=== PATIENT | female | born 1955 | race Caucasian/White ===

== ENCOUNTER 2018-11-19 12:08 | Outpatient (CLI) | payer OTHER ==
--- NOTE | 2018-11-19 13:49 | RAD ---
LUMBAR SPINE TWO VIEWS: History: Low back pain. FINDINGS: There are five lumbar type vertebrae. Pedicles are intact. Prominent rightward convex curvature apex L2-3 level. Mild chronic appearing compression of the L3 and L2 superior endplates. AP alignment maintained. Prom inent osteophytosis throughout the vertebral bodies and facets. IMPRESSION: 1. Prominent degenerative changes of the lumbar spine including rightward convex scoliotic curvature. 2. Mild chronic appearing compression of the L2 and L3 superior endplates. POS: [facility]
--- NOTE | 2018-11-19 14:54 | RAD ---
RIGHT KNEE TWO VIEWS: HISTORY: Right knee pain. FINDINGS: Mild joint space narrowing, medial compartment, where osteophytosis is most pronounced. Postoperativ e changes, consistent with ACL reconstruction. Osteophytosis of the posterior patella. Mild fluid d istention of the suprapatella bursa. IMPRESSION: 1. Small amount of joint fluid, likely related to otherwise moderate osteoarthritic changes of the m edia compartment. 2. Status post anterior cruciate ligament reconstruction. POS: [facility]
== END 2018-11-19 12:09 | disposition home or self-care (01) ==
LOC: BICRAD 12:08
PROVIDERS: ATTEND Internal Medicine
DX: Z02.71 Encounter for disability determination (principal); M47.816 Spondylosis without myelopathy or radiculopathy, lumbar region
CPT/HCPCS: 72100

== ENCOUNTER 2019-12-26 14:05 | Outpatient (CLI) | payer BC ==
--- NOTE | 2019-12-26 15:48 | BD ---
Exam: DEXA Bone Density 12/26/19 HISTORY: Postmenopausal screening for osteoporosis. FINDINGS: Lumbar Spine: BMD (g/cm2) T-SCORE Z-SCORE L1 1.172 1.7 3.1 L2 1.502 4.3 5.9 L3 1.567 4.4 6.1 L4 1.427 3.3 5.1 L1-L4 1.420 3.4 5.0 Femoral Neck: 0.944 0.9 2.3 Total Femur: 1.078 1.1 2.2 Impression: Normal BMD. POS: [facility]
--- NOTE | 2020-01-06 15:48 | MMO ---
Bilateral MAMMO Bilat Screen [facility]. CLINICAL HISTORY: Patient is 64 years old and is seen for screening. The patient has the following family history of breast cancer: 2 great aunts. The patient has a history of bilateral Implants in 1996 and bilateral Explantation in 1996. VIEWS: The views performed were: bilateral craniocaudal with tomosynthesis and bilateral mediolateral oblique with tomosynthesis. FILMS COMPARED: The present examination has been compared to prior imaging studies performed at [facility] on 11/24/2011, 10/09/2013, 12/12/2014 and 12/01/2016. This study has been interpreted with the assistance of computer-aided detection. MAMMOGRAM FINDINGS: There are scattered fibroglandular densities. There are no suspicious masses, suspicious calcifications, or new areas of architectural distortion. IMPRESSION: THERE IS NO MAMMOGRAPHIC EVIDENCE OF MALIGNANCY. A ROUTINE FOLLOW-UP MAMMOGRAM IN 1 YEAR IS RECOMMENDED. THE RESULTS OF THIS EXAM WERE SENT TO THE PATIENT. ACR BI-RADS Category 1 - Negative MAMMOGRAPHY NOTE: 1. A negative mammogram report should not delay a biopsy if a dominant of clinically suspicious mass is present. 2. Approximately 10% to 15% of breast cancers are not detected by mammography. 3. Adenosis and dense breasts may obscure an underlying neoplasm. Reported by: MORAIMA SANTOS MD Electonically Signed: [id number]
== END 2019-12-26 14:06 | disposition home or self-care (01) ==
LOC: BICMAMMO 14:05
PROVIDERS: ATTEND Internal Medicine
DX: Z12.31 Encounter for screening mammogram for malignant neoplasm of breast (principal); Z13.820 Encounter for screening for osteoporosis; M81.0 Age-related osteoporosis without current pathological fracture; Z80.3 Family history of malignant neoplasm of breast; Z98.82 Breast implant status
CPT/HCPCS: 77063; 77067; 77080

== ENCOUNTER 2021-01-31 15:07 | Emergency (ER) | payer BC ==
[~2021-01-31 15:07] MED LIST: Iopamidol-370 76% 500 ML 1 ML ONE
[2021-01-31 16:28] LABS: #Basophils 0.1 thou/uL (0.0-0.2); #Eosinphils 0.2 thou/uL (0.0-0.7); #Lymphocytes 2.5 thou/uL (1.20-3.40); #Neutrophils 9.8 thou/uL (1.40-6.50); %Basophils 0.4 % (0.0-1.0); %Eosinophils 1.4 % (0.0-10.0); %Lymphocytes 18.6 % (21.0-51.0); %Monocytes 7.3 % (0.0-10.0); %Neutrophils 72.2 % (42.0-75.0); Hemoglobin 12.9 g/dL (12.0-16.0); Mean Corpuscular HGB CONC 33.1 g/dL (32.0-36.0); Mean Corpuscular Hemoglobin 32.1 pg (27.0-31.0); Mean Corpuscular Volume 97.1 fL (78.0-98.0); Mean Platelet Volume 7.7 fL (7.4-10.4); Platelet Count 257 thou/uL (130-400); RBC Distribution Width 11.9 % (11.5-14.5); Red Blood Cell (RBC) Count 4.02 mill/uL (4.20-5.40); White Blood Cell (WBC) Count 13.5 thou/uL (4.8-10.8)
[2021-01-31 16:32] LABS: Bacteria/HPF None Seen HPF (None Seen); Bilirubin Negative (Negative); Blood, Urine Trace (Negative); Clarity Clear (Clear); Glucose, Urine (Dipstick) Normal (Negative); Ketone, Urine Negative (Negative); Leukocyte Negative Leu/uL (Negative); Nitrite Negative (Negative); Protein, Urine (Dipstick) Negative (Neg-Trace); RBC/HPF 0-3 HPF (0-3); Specific Gravity, Urine 1.013 (1.002-1.036); Squamous Epithelial 0-3 HPF (0-3); Urobilinogen Normal mg/dL (Less than 2); WBC/HPF 0-3 HPF (0-3); pH, Urine 5.5 (5.0-9.0)
[2021-01-31] MEDS ORDERED: Ondansetron PF 4 MG/2 ML Vial ONE (16:44)
[2021-01-31] MEDS ORDERED: Morphine 4 MG/ML VIAL ONE (16:44)
[2021-01-31 17:38] LABS: ALT (SGPT) 8 U/L (8-55); AST (SGOT) 9 U/L (5-34); Albumin 4.1 g/dL (3.4-4.8); Alkaline Phosphatase 64 U/L (40-110); Anion Gap 13 mmol/L (10-20); BUN (Urea Nitrogen) 17 mg/dL (9.8-20.1); Bilirubin, Total 0.4 mg/dL (0.2-1.2); Calc. Creatinine Clearance 0 mL/min (70-130); Calcium 8.5 mg/dL (7.8-10.44); Carbon Dioxide 23 mmol/L (23-31); Chloride 96 mmol/L (98-107); Globulin 2.4 g/dL (2.4-3.5); Glucose 98 mg/dL (80-115); Lipase 33 U/L (8-78); Potassium 3.5 mmol/L (3.5-5.1); Protein, Total 6.5 g/dL (5.8-8.1); Sodium 128 mmol/L (136-145)
[2021-01-31] MEDS ORDERED: Fentanyl 100 MCG/2 ML VIAL ONE (19:00)
== END 2021-01-31 19:24 | disposition home or self-care (01) ==
LOC: ERS 15:07
DX: R10.31 Right lower quadrant pain (principal); E87.1 Hypo-osmolality and hyponatremia; R60.0 Localized edema; K63.89 Other specified diseases of intestine; I35.1 Nonrheumatic aortic (valve) insufficiency; D64.9 Anemia, unspecified; Z79.899 Other long term (current) drug therapy
CPT/HCPCS: 74177; 80053; 81003; 81015; 83690; 85025; 96374; 96375; J2270; J2405; J3010; Q9967

== ENCOUNTER 2021-03-01 11:53 | Outpatient (CLI) | payer BC ==
[2021-03-02 01:30] LABS: SARS-CoV-2 PCR by NAA Not Detected (NotDetected)
== END 2021-03-01 11:54 | disposition home or self-care (01) ==
LOC: LABBT 11:53
PROVIDERS: ATTEND Internal Medicine Gastroenterology
DX: Z01.812 Encounter for preprocedural laboratory examination (principal); R13.10 Dysphagia, unspecified; R93.5 Abnormal findings on diagnostic imaging of other abdominal regions, including retroperitoneum; Z20.822 Contact with and (suspected) exposure to COVID-19
CPT/HCPCS: 87635; U0003; U0005

== ENCOUNTER 2021-03-03 06:28 | Day surgery (SDC) | payer BC ==
[2021-03-02 15:48] VITALS: BMI 25.5
[2021-03-03] MEDS ORDERED: PROPOFOL 200 MG/20 ML VIAL ONE (07:30)
[2021-03-03] MEDS ORDERED: Lidocaine 1% PF 5 ML VIAL ONE (07:30)
== END 2021-03-03 09:24 | disposition home or self-care (01) ==
LOC: SDC 06:28
PROVIDERS: ATTEND Internal Medicine Gastroenterology
PROC: 0DBH8ZX Excision of Cecum, Via Natural or Artificial Opening Endoscopic, Diagnostic (ICD-10-PCS; principal; 2021-03-03)
PROC: 0D757ZZ Dilation of Esophagus, Via Natural or Artificial Opening (ICD-10-PCS; principal; 2021-03-03)
PROC: 0DB68ZX Excision of Stomach, Via Natural or Artificial Opening Endoscopic, Diagnostic (ICD-10-PCS; principal; 2021-03-03)
PROC: 0DB98ZX Excision of Duodenum, Via Natural or Artificial Opening Endoscopic, Diagnostic (ICD-10-PCS; principal; 2021-03-03)
DX: K52.9 Noninfective gastroenteritis and colitis, unspecified (principal); K31.89 Other diseases of stomach and duodenum; R13.10 Dysphagia, unspecified; K63.3 Ulcer of intestine; K64.9 Unspecified hemorrhoids; K62.89 Other specified diseases of anus and rectum; Q43.8 Other specified congenital malformations of intestine; K44.9 Diaphragmatic hernia without obstruction or gangrene; I10 Essential (primary) hypertension; E03.9 Hypothyroidism, unspecified; Z79.1 Long term (current) use of non-steroidal anti-inflammatories (NSAID); Z79.82 Long term (current) use of aspirin; Z79.899 Other long term (current) drug therapy; Z88.0 Allergy status to penicillin; Z91.041 Radiographic dye allergy status
CPT/HCPCS: 87635; 88305; J2704; U0003; U0005

== ENCOUNTER 2022-04-27 12:52 | Outpatient (CLI) | payer MEDICARE | END 2022-04-27 12:53 | disposition home or self-care (01) | LOC: SCSMRI 12:52 | PROVIDERS: ATTEND Nurse Practitioner Family | DX: M47.22 Other spondylosis with radiculopathy, cervical region (principal); M47.26 Other spondylosis with radiculopathy, lumbar region | CPT/HCPCS: 72141; 72148 ==

== ENCOUNTER 2022-08-04 16:21 | Outpatient (CLI) | payer MEDICARE | END 2022-08-04 16:22 | disposition home or self-care (01) | LOC: BICRAD 16:21 | PROVIDERS: ATTEND Neurological Surgery | DX: M47.22 Other spondylosis with radiculopathy, cervical region (principal) | CPT/HCPCS: 72050 ==

== ENCOUNTER 2022-09-01 10:57 | Outpatient (CLI) | payer MEDICARE ==
[2022-09-01 12:59] LABS: Hemoglobin 13.2 g/dL (12.0-15.5); Mean Corpuscular HGB CONC 34.5 g/dL (32.0-36.0); Mean Corpuscular Hemoglobin 32.4 pg (27.0-33.0); Mean Corpuscular Volume 93.9 fl (81.6-98.3); Mean Platelet Volume 10.5 fl (7.4-10.4); Platelet Count 315 10x3/uL (150-450); RBC Distribution Width 12.7 % (11.5-14.5); Red Blood Cell (RBC) Count 4.08 10x6/uL (3.90-5.03); White Blood Cell (WBC) Count 7.7 10x3/uL (3.5-10.5)
== END 2022-09-01 10:58 | disposition home or self-care (01) ==
LOC: LABBT 10:57
PROVIDERS: ATTEND Neurological Surgery
DX: Z01.812 Encounter for preprocedural laboratory examination (principal); M50.121 Cervical disc disorder at C4-C5 level with radiculopathy
CPT/HCPCS: 85027

== ENCOUNTER 2022-09-01 11:00 | Inpatient (IN) | payer MEDICARE ==
[2022-09-02 15:25] VITALS: BMI 26.4
[2022-09-05] MEDS ORDERED: Neomycin-Polymyxin 1 ML AMP ONE (06:10)
[2022-09-05] MEDS ORDERED: Thrombin 5000 UNITS/5 ML VIAL ONE ×2 (06:10→09:46)
[2022-09-05] MEDS ORDERED: Lidocaine 2% 6 ML SYR ONE (06:13)
[2022-09-05] MEDS ORDERED: fentaNYL PF 100 MCG/2 ML SYRINGE ONE (06:13)
[2022-09-05] MEDS ORDERED: Midazolam HCl 2 mg/2 ml Vial ONE (06:13)
[2022-09-05] MEDS ORDERED: Levofloxacin 500 mg/D5W 100 ml Premix Bag ONE (06:45)
[2022-09-05] MEDS ORDERED: Clindamycin/D5W 900 mg/50 ml Premix Bag ONE (06:52)
[2022-09-05] MEDS ORDERED: Rocuronium Bromide 10 MG/ML (10ML VIAL) ONE (07:04)
[2022-09-05] MEDS ORDERED: PHENYLEPHRINE-NS 100 MCG/ML 10 ML SYRINGE ONE (07:04)
[2022-09-05] MEDS ORDERED: diphenhydrAMINE 50 MG/ML VIAL ONE (07:04)
[2022-09-05] MEDS ORDERED: Metoclopramide HCl 10 MG/2 ML VIAL ONE (07:04)
[2022-09-05] MEDS ORDERED: Dexamethasone 20 MG/5 ML VIAL ONE (07:04)
[2022-09-05] MEDS ORDERED: Glycopyrrolate 0.2 MG/ML 5 ML SYRINGE ONE (07:04)
[2022-09-05] MEDS ORDERED: ePHEDrine 50 MG/ML VIAL ONE (07:04)
[2022-09-05] MEDS ORDERED: PROPOFOL 200 MG/20 ML VIAL ONE (07:04)
[2022-09-05] MEDS ORDERED: NEOSTIGMINE 3 MG/3 ML SYR 3 MG/3 ML SYRINGE ONE (07:04)
[2022-09-05] MEDS ORDERED: Ondansetron PF 4 MG/2 ML Vial ONE (07:04)
[2022-09-05] MEDS ORDERED: Ketorolac Tromethamine 30 MG/ML VIAL ONE (07:04)
[2022-09-05 07:14] LABS: INR-International Normal Ratio 0.9; Prothrombin Time 12.3 sec (12.0-14.7)
[2022-09-05] MEDS ORDERED: HYDROcodone/Acetaminophen 7.5/325 mg Tablet PO PRN (07:18)
[2022-09-05] MEDS ORDERED: Morphine 2 MG/ML VIAL SLOW IVP PRN (07:18)
[2022-09-05] MEDS ORDERED: diphenhydrAMINE 50 MG/ML VIAL IVP PRN (07:18)
[2022-09-05] MEDS ORDERED: Ondansetron PF 4 MG/2 ML Vial IVP PRN (07:18)
[2022-09-05] MEDS ORDERED: Cyclobenzaprine 10 MG TAB PO PRN (07:18)
[2022-09-05] MEDS ORDERED: HYDROcodone/Acetaminophen 10/325 mg Tablet PO PRN (07:18)
[2022-09-05] MEDS ORDERED: Acetaminophen/Codeine 30-300mg Tablet PO PRN (07:18)
[2022-09-05] MEDS ORDERED: Sodium Chloride 0.9% 1,000 ML IV SCH (07:30)
[2022-09-05 07:33] LABS: SARS-CoV-2 NAA Rapid Test Not Detected (NotDetected)
[2022-09-05] MEDS ORDERED: Phenylephrine 10 MG/ML VIAL ONE (08:20)
[2022-09-05] MEDS ORDERED: Rocuronium Bromide 50 MG/5 ML VIAL ONE (09:40)
[2022-09-05] MEDS ORDERED: SUGAMMADEX SODIUM 200 MG/2 ML VIAL ONE (11:07)
[2022-09-05] MEDS ORDERED: Ondansetron HCl/PF 4 MG/2 ML Vial IVP PRN (11:38)
[2022-09-05] MEDS ORDERED: Promethazine HCl 25 MG/ML VIAL IVPB PRN (11:38)
[2022-09-05] MEDS ORDERED: HYDROmorphone 2 MG/ML VIAL SLOW IVP PRN (11:38)
[2022-09-05] MEDS ORDERED: Promethazine HCl 25 MG/ML VIAL IM PRN (11:38)
[2022-09-05] MEDS ORDERED: FENTANYL 50 MCG/ML 1 ML VIAL ONE ×3 (11:56→12:24)
== END 2022-09-05 15:07 | disposition home or self-care (01) | DRG 472 ==
LOC: SURG A 09-05 05:51
PROVIDERS: ADMIT Neurological Surgery; ATTEND Neurological Surgery
PROC: 0RG20A0 Fusion of 2 or more Cervical Vertebral Joints with Interbody Fusion Device, Anterior Approach, Anterior Column, Open Approach (ICD-10-PCS; principal; 2022-09-05)
PROC: 0RB30ZZ Excision of Cervical Vertebral Disc, Open Approach (ICD-10-PCS; 2022-09-05)
DX: M50.121 Cervical disc disorder at C4-C5 level with radiculopathy (principal); M50.021 Cervical disc disorder at C4-C5 level with myelopathy; M50.122 Cervical disc disorder at C5-C6 level with radiculopathy; M50.123 Cervical disc disorder at C6-C7 level with radiculopathy; M40.202 Unspecified kyphosis, cervical region; F41.9 Anxiety disorder, unspecified; M48.062 Spinal stenosis, lumbar region with neurogenic claudication; E78.00 Pure hypercholesterolemia, unspecified; F32.A Depression, unspecified; I10 Essential (primary) hypertension; E03.9 Hypothyroidism, unspecified; M25.78 Osteophyte, vertebrae; G43.909 Migraine, unspecified, not intractable, without status migrainosus; Z79.82 Long term (current) use of aspirin; Z79.899 Other long term (current) drug therapy; Z90.710 Acquired absence of both cervix and uterus; Z88.0 Allergy status to penicillin
CPT/HCPCS: 85610; 85730; C1713; C1768; J1100; J1200; J1885; J1956; J2250; J2370; J2405; J2704; J2765; J3010; J3490; U0002

== ENCOUNTER 2022-11-10 14:00 | Outpatient (CLI) | payer MEDICARE | END 2022-11-10 14:01 | disposition home or self-care (01) | LOC: BICMAMMO 14:00 | PROVIDERS: ATTEND Internal Medicine | DX: Z12.31 Encounter for screening mammogram for malignant neoplasm of breast (principal); M47.22 Other spondylosis with radiculopathy, cervical region; Z98.82 Breast implant status; Z98.890 Other specified postprocedural states; Z80.3 Family history of malignant neoplasm of breast | CPT/HCPCS: 72040; 77063; 77067 ==

== ENCOUNTER 2023-09-18 15:48 | Outpatient (CLI) | payer OTHER, MEDICAID | END 2023-09-18 15:49 | disposition home or self-care (01) | LOC: BICRAD 15:48 | PROVIDERS: ATTEND Anesthesiology Pain Medicine | DX: M46.1 Sacroiliitis, not elsewhere classified (principal); M47.898 Other spondylosis, sacral and sacrococcygeal region; M41.9 Scoliosis, unspecified; M48.8X6 Other specified spondylopathies, lumbar region | CPT/HCPCS: 72100 ==

== ENCOUNTER 2023-10-11 12:38 | Outpatient (CLI) | payer OTHER, MEDICAID | END 2023-10-11 12:39 | disposition home or self-care (01) | LOC: MRI 12:38 | PROVIDERS: ATTEND Nurse Practitioner Family | DX: S32.029A Unspecified fracture of second lumbar vertebra, initial encounter for closed fracture (principal); S32.039A Unspecified fracture of third lumbar vertebra, initial encounter for closed fracture; M47.816 Spondylosis without myelopathy or radiculopathy, lumbar region; M48.061 Spinal stenosis, lumbar region without neurogenic claudication | CPT/HCPCS: 72148 ==

== ENCOUNTER 2023-12-07 13:57 | Outpatient (CLI) | payer OTHER, MEDICAID | END 2023-12-07 13:58 | disposition home or self-care (01) | LOC: BICRAD 13:57 | PROVIDERS: ATTEND Neurological Surgery | DX: M54.50 Low back pain, unspecified (principal) | CPT/HCPCS: 72120 ==

== ENCOUNTER 2024-10-03 14:51 | Outpatient (CLI) | payer OTHER, MEDICAID | END 2024-10-03 14:52 | disposition home or self-care (01) | LOC: BICRAD 14:51 | PROVIDERS: ATTEND Neurological Surgery | DX: M54.2 Cervicalgia (principal); M43.12 Spondylolisthesis, cervical region; G95.89 Other specified diseases of spinal cord; Z98.890 Other specified postprocedural states | CPT/HCPCS: 72050 ==

== ENCOUNTER 2024-11-21 11:46 | Outpatient (CLI) | payer OTHER, MEDICAID | END 2024-11-21 11:47 | disposition home or self-care (01) | LOC: BICRAD 11:46 | PROVIDERS: ATTEND Internal Medicine | DX: S53.402A Unspecified sprain of left elbow, initial encounter (principal); M25.531 Pain in right wrist; M25.422 Effusion, left elbow; M18.12 Unilateral primary osteoarthritis of first carpometacarpal joint, left hand ==

== ENCOUNTER 2025-06-30 15:23 | Outpatient (CLI) | payer MEDICAID, OTHER | END 2025-06-30 15:24 | disposition home or self-care (01) | LOC: BICMAMMO 15:23 | PROVIDERS: ATTEND Internal Medicine | DX: Z12.31 Encounter for screening mammogram for malignant neoplasm of breast (principal); Z80.3 Family history of malignant neoplasm of breast; Z98.82 Breast implant status | CPT/HCPCS: 77063; 77067 ==